=== PATIENT | male | born 1990 | race African-American/Black ===

== ENCOUNTER 2019-05-17 13:09 | Emergency (ER) | payer MEDICAID ==
[~2019-05-17] VITALS: Ht 185.4 cm; Wt 86.2 kg
--- NOTE | 2019-05-17 13:23 | NUR ---
ED Nurse Note: Pt walked in from home c/o throbbing 10/10 posterior headache since . Pt said he was seen here the other day, but the pain has gotten worse. Respirations are even and unlabored on room air. Vitals stable as documented.
--- NOTE | 2019-05-17 13:52 | Emergency Room Report ---
History of Present Illness General Chief Complaint: Headache Source: Patient Present Illness HPI 29-year-old male presents to the emergency department complaining of 10 out of 10 severity progressive posterior headache radiating to the right pentecostal since Sunday. Patient reports he began with headache, nasal congestion, cough, rhinorrhea and sore throat he was seen here in the emergency department has been taking medications with have helped with all of his symptoms except for his headache. Patient reports that his headache is gotten worse. He states that he has not been able to drink enough water. Patient denies photophobia he denies neck stiffness. He denies recent trauma or fall. He is not taking any blood thinning medications. No previous history of headaches or migraines in the past. Denies nausea vomiting, tinnitus, vertigo, dizziness or visual changes. Allergies: Coded Allergies: No Known Allergies (Unverified , 05/14/19) Patient History Past Medical History: see triage record Past Surgical History: none Pertinent Family History: none Reviewed Nursing Documentation: PMH: Agreed; PSxH: Agreed Nursing Documentation-PMH Past Medical History: No History, Except For Hx Asthma: Yes Review of Systems All Other Systems: negative except mentioned in HPI Physical Exam Vital Signs Date Time Temp Pulse Resp B/P (MAP) Pulse Ox O2 Delivery O2 Flow Rate FiO2 05/17/19 13:16 98.2 85 16 130/84 (99) 96 Room Air Sp02 EP Interpretation: reviewed, normal General Appearance: alert, GCS 15, non-toxic, moderate distress Head: normocephalic, atraumatic Eyes: bilateral eye normal inspection, bilateral eye PERRL, bilateral eye EOMI , bilateral eye other - no photophobia, no ENT: hearing grossly normal, normal voice Neck: full range of motion Respiratory: chest non-tender, lungs clear, normal breath sounds, speaking full sentences Cardiovascular #1: regular rate, rhythm, no edema Gastrointestinal: normal bowel sounds, non tender, soft Rectal: deferred Genitourinary: normal inspection, no CVA tenderness Musculoskeletal: back normal, normal range of motion, gait/station normal, non- tender Neurologic: alert, motor strength/tone normal, oriented x3, sensory intact, responsive, speech normal, normal gait, grossly normal, other - no nystagmus Psychiatric: judgement/insight normal Skin: no rash Medical Decision Making PA Attestation Dr. Bentley is my supervising Physician whom patient management has been discussed with. Diagnostic Impression: Primary Impression: Headache Qualified Codes: R51 - Headache Additional Impression: Viral syndrome ER Course 29-year-old male presents to the emergency department complaining of 10 out of 10 severity progressive posterior headache radiating to the right pentecostal since Sunday. Patient reports he began with headache, nasal congestion, cough, rhinorrhea and sore throat he was seen here in the emergency department has been taking medications with have helped with all of his symptoms except for his headache. Patient reports that his headache is gotten worse. He states that he has not been able to drink enough water. Patient denies photophobia he denies neck stiffness. He denies recent trauma or fall. He is not taking any blood thinning medications. No previous history of headaches or migraines in the past. Denies nausea vomiting, tinnitus, vertigo, dizziness or visual changes. Ddx considered but are not limited to migraine, SAH, Pseudomotor Cerebri,, Mass lesion, Cluster HIDALGO, Tension HIDALGO, Post lumbar puncture HIDALGO, dehydration, posterior circulation thrombosis or dissection, vertebral artery dissection just to name a few Vital signs: are WNL, pt. is afebrile H&PE are most consistent with headache- most likely due to viral syndrome. NO meningeal signs. NO neurological symptoms or deficits. ORDERS: - -CBC: low wbc's 3.0 -BMP: mild ALEX cr. 1.5 ED INTERVENTIONS: - Compazine PO - IV Toradol -IV Benadryl 25mg -1 L NS bolus -500cc NS bolud Patient reports that at this time his headache has completely resolved. DISCHARGE: At this time pt. is stable for d/c to home. Will provide printed patient care instructions, and any necessary prescriptions. Care plan and follow up instructions have been discussed with the patient prior to discharge. Labs Test 05/17/19 15:13 White Blood Count 3.0 K/UL (4.8-10.8) Red Blood Count 5.52 M/UL (4.70-6.10) Hemoglobin 12.7 G/DL (14.2-18.0) Hematocrit 40.3 % (42.0-52.0) Mean Corpuscular Volume 73 FL (80-99) Mean Corpuscular Hemoglobin 22.9 PG (27.0-31.0) Mean Corpuscular Hemoglobin Concent 31.5 G/DL (32.0-36.0) Red Cell Distribution Width 12.9 % (11.6-14.8) Platelet Count 162 K/UL (150-450) Mean Platelet Volume 7.1 FL (6.5-10.1) Neutrophils (%) (Auto) % (45.0-75.0) Lymphocytes (%) (Auto) % (20.0-45.0) Monocytes (%) (Auto) % (1.0-10.0) Eosinophils (%) (Auto) % (0.0-3.0) Basophils (%) (Auto) % (0.0-2.0) Differential Total Cells Counted 100 Neutrophils % (Manual) 37 % (45-75) Lymphocytes % (Manual) 48 % (20-45) Monocytes % (Manual) 14 % (1-10) Eosinophils % (Manual) 0 % (0-3) Basophils % (Manual) 0 % (0-2) Band Neutrophils 1 % (0-8) Nucleated Red Blood Cells 2 /100 WBC Platelet Estimate Decreased Platelet Morphology Normal Polychromasia 1+ Microcytosis 1+ Sodium Level 138 MMOL/L (136-145) Potassium Level 3.5 MMOL/L (3.5-5.1) Chloride Level 104 MMOL/L (98-107) Carbon Dioxide Level 27 MMOL/L (21-32) Anion Gap 8 mmol/L (5-15) Blood Urea Nitrogen 11 mg/dL (7-18) Creatinine 1.5 MG/DL (0.55-1.30) Estimat Glomerular Filtration Rate > 60 mL/min (>60) Glucose Level 86 MG/DL (74-106) Calcium Level 7.8 MG/DL (8.5-10.1) Last Vital Signs Date Time Temp Pulse Resp B/P (MAP) Pulse Ox O2 Delivery O2 Flow Rate FiO2 05/17/19 13:26 98.0 84 20 97 Room Air 05/17/19 13:16 130/84 (99) Disposition: HOME, SELF-CARE Condition: Stable Scripts Aspirin/Caffeine/Butalbital (Fiorinal 50-325-40 mg Capsule) 1 Each Capsule 1 EA PO Q8HR, #12 CAP Prov: Mckenna Kam 05/17/19 Referrals: NOT CHOSEN IPA/MD,REFERRING (PCP) Departure Forms: Return to Work Return to Work Date: May 20, 2019 Work Restrictions: None Other Restrictions: May return Sooner if Symptoms have resolved. Return to Full Activity: May 20, 2019 Patient Instructions: General Headache Without Cause Additional Instructions: Take medications as directed. Follow up with a Primary Care Provider within 3-5 days For a referral to have NEUROLOGIST Evaluation, even if your symptoms have resolved. --Please review list of primary care clinics, if you do not already have a primary care provider Return sooner to ED if new symptoms occur, or current symptoms become worse. - Please note that this Emergency Department Report was dictated using [employer] technology software, occasionally this can lead to erroneous entry secondary to interpretation by the dictation equipment. Mckenna Kam May 17, 2019 13:51
[2019-05-17] MEDS ORDERED: Prochlorperazine 10mg tab ORAL ONE (14:00)
[2019-05-17] MEDS ORDERED: DiphenhydrAMINE 50mg/ml Inj IVP ONE (14:00)
[2019-05-17] MEDS ORDERED: Metoclopramide 10mg/2ml Inj IVP ONE (15:15)
[2019-05-17] MEDS ORDERED: Ketorolac 30mg Inj IV ONE (15:15)
[2019-05-17 15:24] LABS: HEMATOCRIT 40.3 % (42.0-52.0); HEMOGLOBIN 12.7 G/DL (14.2-18.0); MEAN CORPUSCULAR VOLUME 73 FL (80-99); PLATELET COUNT 162 K/UL (150-450); RED BLOOD COUNT 5.52 M/UL (4.70-6.10); RED CELL DISTRIBUTION WIDTH 12.9 % (11.6-14.8)
[2019-05-17 15:43] VITALS: BP 132/87
[2019-05-17 15:43] LABS: ANION GAP 8 mmol/L (5-15); BLOOD UREA NITROGEN 11 mg/dL (7-18); CALCIUM 7.8 MG/DL (8.5-10.1); CARBON DIOXIDE 27 MMOL/L (21-32); CHLORIDE 104 MMOL/L (98-107); CREATININE 1.5 MG/DL (0.55-1.30); POTASSIUM 3.5 MMOL/L (3.5-5.1); SODIUM 138 MMOL/L (136-145)
[2019-05-17] MEDS ORDERED: FIORINAL 50-321 EACH PO (16:38)
--- NOTE | 2019-05-17 16:45 | NUR ---
ER DISCHARGE NOTE: Patient is cleared to be discharged per ERMD, pt is aox4, on room air, with stable vital signs. pt was given dc and prescription instructions, pt was able to verbalize understanding, pt id band and iv site removed without complications. pt is able to ambulate with steady gait. pt took all belongings.
[2019-05-17 17:15] VITALS: BP 134/85
== END 2019-05-17 16:45 | disposition home or self-care (01) ==
LOC: EMR 13:26
DX: B34.9 Viral infection, unspecified (principal); R51 Headache; J45.909 Unspecified asthma, uncomplicated
CPT/HCPCS: 36415; 80048; 85007; 85025; 96361; 96374; 96375; J1200; J1885; J2765; J7030; J7040; Z7502; 99284

== ENCOUNTER 2019-11-21 19:25 | Emergency (ER) | payer MEDICAID, OTHER ==
[~2019-11-21 19:25] MED LIST: FIORINAL 50-321 EACH PO
[2019-11-21] MEDS ORDERED: FAMOTIDINE20 MG ORAL (19:58)
[2019-11-21] MEDS ORDERED: ZYRTEC10 M3 ORAL (19:58)
== END 2019-11-21 20:03 | disposition home or self-care (01) ==
DX: R10.13 Epigastric pain (principal); L30.9 Dermatitis, unspecified; R21 Rash and other nonspecific skin eruption

== ENCOUNTER 2019-11-24 22:50 | Emergency (ER) | payer OTHER ==
[~2019-11-24] VITALS: Ht 185.4 cm; Wt 83.9 kg
[~2019-11-24 22:50] MED LIST changes: +FAMOTIDINE20 MG ORAL; +ZYRTEC10 M3 ORAL
[2019-11-24 23:02] VITALS: BP 147/84
[2019-11-24] MEDS ORDERED: VOLTAREN100 G1 TP (23:12)
[2019-11-24 23:16] VITALS: BP 140/83
--- NOTE | 2019-11-24 23:23 | Emergency Room Report ---
History of Present Illness General Chief Complaint: Pain Source: Patient Present Illness HPI Disclaimer: Please note that this report is being documented using [employer] technology. This can lead to erroneous entry secondary to incorrect interpretation by the dictating instrument. HPI: 29-year-old male no reported past medical history presented for right elbow pain. He denies trauma. Pain is worst with extension of the elbow. Pain for the last 3 days. No fevers. Denies numbness or tingling. Pain is 8 out of 10 10 worse with movement. Patient seen by me 3 days ago for gastritis. 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 Patient History Reviewed Nursing Documentation: PMH: Agreed; PSxH: Agreed Nursing Documentation-PMH Past Medical History: No Stated History Hx Asthma: Yes Review of Systems All Other Systems: negative except mentioned in HPI Physical Exam Vital Signs Date Time Temp Pulse Resp B/P (MAP) Pulse Ox O2 Delivery O2 Flow Rate FiO2 11/24/19 22:52 98.6 83 20 147/84 (105) 99 Sp02 EP Interpretation: reviewed, normal General Appearance: well appearing, no apparent distress Head: normocephalic, atraumatic Eyes: bilateral eye PERRL, bilateral eye EOMI ENT: hearing grossly normal, moist mucus membranes Neck: full range of motion, supple Respiratory: lungs clear, normal breath sounds, no rhonchi, no respiratory distress, no retraction, no wheezing Cardiovascular #1: normal peripheral pulses, regular rate, rhythm, no murmur Gastrointestinal: non tender, soft, non-distended, no guarding Musculoskeletal: other - Right elbow with full range of motion with some pain, mild tenderness medially, no deformity, distal pulses intact. Neurologic: alert, oriented x3, no focal defects Skin: normal color, warm/dry Medical Decision Making Diagnostic Impression: Primary Impression: Sprain of elbow ER Course Differential diagnosis included but not limited to tendinitis, sprain, contusion , muscle spasm to name a few. On exam patient in no acute distress, nontoxic- appearing. Low suspicion for infectious process fracture or dislocation. Exam showed some mild tenderness medially. Patient was placed in a sling for comfort but instructed on early range of motion exercises, and was provided topical diclofenac gel. So recommended ice and rest. Follow-up PMD, return precautions given. Last Vital Signs Date Time Temp Pulse Resp B/P (MAP) Pulse Ox O2 Delivery O2 Flow Rate FiO2 11/24/19 23:16 98.6 85 20 140/83 99 Disposition: HOME, SELF-CARE Condition: Stable Scripts Diclofenac Sodium (VOLTAREN) 100 Gm Gel..gram. 5 GM TP EVERY 12 HOURS PRN for For Pain, #100 GM Prov: Claudy Roe M.D. 11/24/19 Patient Instructions: Elbow Contusion, [id number] Additional Instructions: Please wear the sling as needed for comfort. Please range the elbow daily. Patient is instructed to follow-up with her primary care doctor, primary care clinic or [facility] in 1 to 2 days. Patient instructed to return for any worsening symptoms or concerns. Disclaimer: Please note that this report is being documented using [employer] technology. This can lead to erroneous entry secondary to incorrect interpretation by the dictating instrument. Claudy Roe M.D. Nov 24, 2019 23:23
== END 2019-11-24 23:15 | disposition home or self-care (01) ==
LOC: EMR 23:00
DX: S53.401A Unspecified sprain of right elbow, initial encounter (principal); X58.XXXA Exposure to other specified factors, initial encounter; Y92.9 Unspecified place or not applicable
CPT/HCPCS: 99282